=== PATIENT | male | born 1955 | race Asian ===

== ENCOUNTER 2025-03-23 12:04 | Observation (INO) | payer OTHER ==
[2025-03-23] VITALS (14 sets, daily range): BP systolic 146–171; BP diastolic 63–88; PULSE 53–83; RESP 14–20; TEMP 97.1–98.6; O2SAT 98–100
[~2025-03-23] VITALS: Ht 165.1 cm; Wt 63.5 kg
[2025-03-23] MEDS ORDERED: SODIUM CHLORIDE FLUSH 10 ML SYR IV PRN (12:15)
[2025-03-23 13:15] LABS: BASOPHILS % 0.5 % (0.0-1.0); EOSINOPHILS % 1.9 % (0.0-6.0); LYMPHOCYTES % 27.5 % (18.0-39.1); MONOCYTES % 9.7 % (4.4-11.3); NEUTROPHILS % 60.0 % (38.7-80.0); RED CELL DISTRIBUTION WIDTH 13.6 % (11.7-14.4)
[2025-03-23] MEDS ORDERED: IOPAMIDOL 370 MG/ML 100 ML INFUS..BTL INJ ONE ×2 (13:16→13:26)
[2025-03-23] MEDS ORDERED: HEPARIN SOD/SOD CHLORIDE 1,000 ML ONE (13:16)
[2025-03-23] MEDS ORDERED: LIDOCAINE HCL 1% LOCAL INJ 20 ML VIAL ONE (13:17)
[2025-03-23] MEDS ORDERED: HYDROCHLOROTHIA25 MG PO (13:22)
[2025-03-23] MEDS ORDERED: LIPITOR20 MG PO (13:22)
[2025-03-23] MEDS ORDERED: PANTOPRAZOLE SO40 MG PO (13:22)
[2025-03-23] MEDS ORDERED: ASPIRIN81 MG PO (13:22)
[2025-03-23] MEDS ORDERED: METFORMIN HCL500 MG PO (13:22)
[2025-03-23] MEDS ORDERED: EFFIENT10 MG PO (13:22)
[2025-03-23] MEDS ORDERED: METOPROLOL TART25 MG PO (13:22)
[2025-03-23] MEDS ORDERED: HEPARIN SOD (PORCINE) 1000 UNIT/ML 30ML ONE (13:25)
[2025-03-23] MEDS ORDERED: NITROGLYCERIN/D5W 200 MCG/ML 250 ML ONE (13:26)
[2025-03-23] MEDS ORDERED: VERAPAMIL HCL 2.5 MG/ML 2 ML VIAL ONE (13:26)
[2025-03-23] MEDS ORDERED: LIDOCAINE HCL 2% LOCAL 20 ML VIAL ONE (13:26)
[2025-03-23] MEDS ORDERED: SODIUM CHLORIDE 0.9% 1000ML 1,000 ML ONE (13:26)
[2025-03-23 13:36] LABS: EST GLOMERULAR FILTRATION RATE 57.0 ML/MIN (>=60)
[2025-03-23] MEDS ORDERED: BIVALRIUDIN 250 MG/VIAL VIAL IV ONE (13:42)
[2025-03-23] MEDS ORDERED: ONDANSETRON HCL INJ 2MG/ML 2ML 2 MG/ML VIAL IV PRN ×2 (13:45→15:30)
[2025-03-23] MEDS ORDERED: SODIUM CHLORIDE FLUSH 10 ML SYR INJ PRN (13:45)
[2025-03-23] MEDS ORDERED: MIDAZOLAM HCL 2 MG/2 ML VIAL ONE ×2 (13:52→14:28)
[2025-03-23] MEDS ORDERED: FENTANYL CITRATE/PF 100MCG/2 ML INJ ONE (13:52)
[2025-03-23] MEDS: ASPIRIN 81 MG CHEW TAB PO ONE (14:00)
[2025-03-23] MEDS ORDERED: CLOPIDOGREL BISULFATE 75 MG TAB ONE (14:40)
[2025-03-23] MEDS: ONDANSETRON HCL INJ 2MG/ML 2ML 2 MG/ML VIAL ONE (15:10)
[2025-03-23] MEDS: SODIUM CHLORIDE 0.9% 1000ML 1,000 ML IV SCH (15:30)
[2025-03-23] MEDS ORDERED: DEXTROSE 50% SYRINGE 50 ML IV PRN (15:45)
[2025-03-23] MEDS: INSULIN REGULAR, HUMAN 100 UNIT/1 ML SQ SCH (16:30)
[2025-03-23] MEDS: METOPROLOL TARTRATE 25 MG TAB PO SCH (17:00)
[2025-03-23 17:51] LABS: CHOL/HDL RATIO 2.3 (3.9-4.7); LDL CHOLESTEROL 57.0 MG/DL (60-130)
[2025-03-23] MEDS ORDERED: ACETAMINOPHEN 325 MG TAB PO PRN (18:00)
[2025-03-23] MEDS: ATORVASTATIN 40 MG TAB PO SCH (21:47)
[2025-03-23] MEDS: METOPROLOL TARTRATE 25 MG TAB PO ONE (22:10)
[2025-03-23] MEDS: Morphine 2mg Syringe 2 MG/ML SYR IV PRN (23:07)
[2025-03-24] VITALS: BP 149/67; PULSE 57; RESP 17; TEMP 97.6; O2SAT 100
[2025-03-24 04:00] VITALS: BP 155/63; PULSE 63; RESP 17; TEMP 98.2; O2SAT 100
[2025-03-24 06:36] LABS: BASOPHILS % 0.3 % (0.0-1.0); EOSINOPHILS % 2.8 % (0.0-6.0); LYMPHOCYTES % 17.7 % (18.0-39.1); MONOCYTES % 7.9 % (4.4-11.3); NEUTROPHILS % 71.0 % (38.7-80.0); RED CELL DISTRIBUTION WIDTH 13.7 % (11.7-14.4)
[2025-03-24 06:52] LABS: EST GLOMERULAR FILTRATION RATE 69.0 ML/MIN (>=60)
[2025-03-24 08:30] VITALS: BP 155/63; PULSE 63; RESP 17; TEMP 98.2; O2SAT 100
[2025-03-24 09:00] VITALS: BP 151/93; PULSE 63; RESP 19; TEMP 98.1; O2SAT 100
[2025-03-24] MEDS: PANTOPRAZOLE SOD 40 MG TABEC PO SCH (10:07)
[2025-03-24] MEDS: ASPIRIN 81 MG CHEW TAB PO SCH (10:10)
[2025-03-24] MEDS: PRASUGREL 10 MG TAB PO SCH (10:11)
[2025-03-24] MEDS: HYDROCHLOROTHIAZIDE 25 MG TAB PO SCH (10:11)
[2025-03-24 10:12] VITALS: BP 151/93; PULSE 63
== END 2025-03-24 11:35 | disposition home or self-care (01) ==
LOC: ER 12:10 → ERHOLD 13:33 → MED/SURG3 18:10
PROVIDERS: ADMIT Family Medicine Adult Medicine; ATTEND Family Medicine Adult Medicine
DX: I25.110 Atherosclerotic heart disease of native coronary artery with unstable angina pectoris (principal); T82.855A Stenosis of coronary artery stent, initial encounter; I11.0 Hypertensive heart disease with heart failure; I50.22 Chronic systolic (congestive) heart failure; Z95.5 Presence of coronary angioplasty implant and graft; E78.5 Hyperlipidemia, unspecified
CPT/HCPCS: 36415 ×2; 71045; 76937; 80053 ×2; 80061; 82948 ×2; 83036; 83880; 84484; 85025 ×2; 92928; 92929; 93005; 94760; 99284; C1725 ×4; C1760; C1766; C1769; C1874 ×2; C1887 ×2; G0378 ×2; J0583; J1644; J2003; J2250; J2270; J2405; J2470; J3010; J7030; Q9967; 36140; 93458; 99152; 99153